=== PATIENT | male | born 1980 ===

== ENCOUNTER 2017-08-06 11:36 | Emergency (ER) | payer SELFPAY ==
[2017-08-06 11:58] VITALS: BMI 25.8
[2017-08-06 12:02] VITALS: BP 128/82; TEMP 99
[2017-08-06 12:05] VITALS: RESP 19
[2017-08-06 12:30] VITALS: PULSE 89; O2SAT 98
--- NOTE | 2017-08-06 12:35 | ED PDOC ---
Arrival/HPI - General Chief Complaint: Dental Pain Time Seen by Provider: 08/06/17 11:38 - History of Present Illness Narrative History of Present Illness (Text): 08/06/17 12:29 Pt is a 36 yo M with PMH of dental abscesses presents to ED due to dental pain. Patient states that 3 days ago he had several abscesses drained from both the last and right side of his mouth by his oral surgeon in [place]. At that time patient was given 2 tablets of percocet 5-325 mg at that time. However, the patient stated that the oral surgeon would not give him an Rx for pain medications at that time citing the "opioid crisis" as the reason he did not get them. Patient is also on day 13 of 14 of oral clindamycin. Patient states that he is scheduled to his teeth extracted tomorrow, but wanted something to help with his pain today. Patient states that he's been seen at [facility] multiple times and been treated for dental pain. However, patient could not provide ID today, nor could any record of his visit at [facility] be found. Patient denies being seen under a different name. Patient denies CP, SOB, n/v/d, abdominal pain , sore throat, ear pain, sinus pain, congestion, POE, or dizziness. Past Medical History - Cardiac Hx Cardiac Disorders: No - Pulmonary Hx Asthma: Yes - Neurological Hx Neurological Disorder: No - HEENT Hx HEENT Disorder: No - Renal Hx Renal Disorder: No - Endocrine/Metabolic Hx Endocrine Disorders: No - Hematological/Oncological Hx Blood Disorders: No - Integumentary Hx Dermatological Disorder: No - Musculoskeletal/Rheumatological Hx Musculoskeletal Disorders: No - Gastrointestinal Hx Gastrointestinal Disorders: No - Genitourinary/Gynecological Hx Genitourinary Disorders: No - Psychiatric Hx Psychophysiologic Disorder: No Hx Substance Use: No Family/Social History Family/Social History: No Known Family HX Smoking Status: Never Smoked Hx Alcohol Use: No Hx Substance Use: No Allergies/Home Meds Allergies/Adverse Reactions: Allergies ibuprofen [From Motrin] Allergy (Verified 08/06/17 12:00) ITCHING ketorolac [From Toradol] Allergy (Verified 08/06/17 12:00) ITCHING latex Allergy (Verified 08/06/17 12:00) ITCHING levofloxacin [From Levaquin] Allergy (Verified 08/06/17 12:00) ITCHING Penicillins Allergy (Verified 08/06/17 12:00) ITCHING povidone-iodine [From Betadine] Allergy (Verified 08/06/17 12:00) ITCHING soap [From Betadine] Allergy (Verified 08/06/17 12:00) ITCHING tramadol Allergy (Verified 08/06/17 12:00) ITCHING Home Medications: Home Meds Medication Instructions Recorded Confirmed Clindamycin HCl [Cleocin HCl] 300 mg PO TID 08/06/17 08/06/17 Review of Systems - Physician Review All systems were reviewed & negative as marked: Yes (12 point ROS reviewed and is negative other than what is stated in HPI.) Physical Exam Vital Signs Reviewed: Yes Vital Signs Temp Pulse Resp BP Pulse Ox 08/06/17 12:26 89 19 98 08/06/17 12:02 99.0 F 71 19 128/82 99 08/06/17 12:01 99.0 F 71 18 128/82 99 Temperature: Afebrile Blood Pressure: Normal Pulse: Regular Respiratory Rate: Normal Appearance: Positive for: Well-Appearing Pain Distress: Mild Mental Status: Positive for: Alert and Oriented X 3 - Systems Exam Head: Present: Atraumatic, Normocephalic Pupils: Present: PERRL Extroacular Muscles: Present: EOMI Conjunctiva: Present: Normal Ears: Present: Normal Mouth: Present: Other (dental caries bilateral upper and lower molars and wisdom teeth. No signs of erythema, discharge, or swelling.) Pharnyx: No: ERYTHEMA, EXUDATE, TONSILS ENLARGED, Peritonsilar Swelling, Uvular Deviation, Muffled/Hoarse Voice Neck: Present: Normal Range of Motion Respiratory/Chest: Present: Clear to Auscultation. No: Respiratory Distress Cardiovascular: Present: Regular Rate and Rhythm, Normal S1, S2. No: Murmurs Abdomen: No: Tenderness, Distention, Peritoneal Signs Back: Present: Normal Inspection Upper Extremity: Present: Normal Inspection Lower Extremity: Present: Normal Inspection Neurological: Present: GCS=15, CN II-XII Intact, Speech Normal Skin: Present: Warm, Dry, Normal Color. No: Rashes Psychiatric: Present: Alert, Oriented x 3, Normal Insight, Normal Concentration Medical Decision Making ED Course and Treatment: 08/06/17 12:36 36 yo M presents to ED for dental pain. Patient was offered non-opioid medications, however patient declined and became clearly upset when he was denied opioids. Patient denies having come [place] [facility] in the past and states that he has been to [facility] where he has been treated. Patient was unable to present ID and no prior records could be found [place] [facility] [place] [facility] under the name Yahir Paulino. Patient refused to acknowledge and denied using any other name. Patient eloped from the ED, prior to discharge. Disposition/Present on Arrival - Present on Arrival Any Indicators Present on Arrival: No History of DVT/PE: No History of Uncontrolled Diabetes: No Urinary Catheter: No History of Decub. Ulcer: No History Surgical Site Infection Following: None - Disposition Have Diagnosis and Disposition been Completed?: Yes Diagnosis: Toothache, Dental caries Disposition: ELOPEMENT - ER ONLY Disposition Time: 12:43 Condition: STABLE Discharge Instructions (ExitCare): Tooth Decay, Adult (DC), Dental Pain (DC) Additional Instructions: 1. Follow up with oral surgeon as scheduled for tooth extraction 2. Complete antibiotics as prescribed 3. May use OTC NSAIDs for pain relief, use according to instructions on label 4. Return to ED if symptoms worsen Forms: [facility] ([place])
== END 2017-08-06 12:26 | disposition left against medical advice (07) ==
LOC: ED 11:36
DX: K02.9 Dental caries, unspecified (principal)